=== PATIENT | female | born 1980 | race African-American/Black ===

== ENCOUNTER 2017-08-10 08:49 | Emergency (ER) | payer MEDICAID, OTHER ==
[~2017-08-10] VITALS: Ht 177.8 cm; Wt 115.0 kg
[~2017-08-10 08:49] MED LIST: ASPIRIN; BENADRYL; GEODON; LAMICTAL; LITHIUM; SEROQUEL; TRAZADONE; VICODIN
[2017-08-10 09:32] VITALS: BP 145/70
[2017-08-10] MEDS ORDERED: SODIUM CHLORIDE 0.9% 1,000 ML IV ONE (09:45)
[2017-08-10] MEDS ORDERED: FAMOTIDINE 20MG/2ML VIAL IV ONE (09:45)
[2017-08-10] MEDS ORDERED: ONDANSETRON HCL 4MG/2ML VIAL IV ONE (09:45)
[2017-08-10 09:54] LABS: HEMATOCRIT. 38.4 % (36.0-48.0); HEMOGLOBIN. 12.7 g/dL (12.0-16.0); MEAN CORPUSCULAR HEMOGLOBIN 29.1 pg (28.0-32.0); MEAN CORPUSCULAR VOLUME 87.5 fL (81.0-99.0); MEAN PLATELET VOLUME 7.3 fl (7.4-10.4); PLATELET 233 x1000/uL (130-400); RED BLOOD CELL COUNT 4.39 mill/uL (4.2-5.4); RED CELL DISTRIBUTION WIDTH 15.4 % (11.6-14.6)
[2017-08-10 10:05] LABS: CARBON DIOXIDE 30 mEq/L (21-32); CHLORIDE 105 mEq/L (98-107)
[2017-08-10 10:14] LABS: ATYPICAL LYMPHOCYTES 1
[2017-08-10 10:16] LABS: PLATELET ESTIMATE NORMAL
[2017-08-10 11:08] LABS: CLARITY URINE CLOUDY (CLEAR); COLOR URINE YELLOW (YELLOW); GLUCOSE URINE NEGATIVE (NEGATIVE); KETONES URINE 1+ (NEGATIVE); LEUKOCYTE ESTERASE URINE NEGATIVE (NEGATIVE); NITRITE URINE NEGATIVE (NEGATIVE); OCCULT BLOOD URINE NEGATIVE (NEGATIVE); PROTEIN URINE NEGATIVE (NEGATIVE); SPECIFIC GRAVITY URINE 1.029 (1.005-1.030)
== END 2017-08-10 11:05 | disposition home or self-care (01) ==
LOC: ER 09:10
DX: R10.13 Epigastric pain (principal); F41.9 Anxiety disorder, unspecified; F31.9 Bipolar disorder, unspecified; F17.210 Nicotine dependence, cigarettes, uncomplicated; F12.10 Cannabis abuse, uncomplicated; Z79.82 Long term (current) use of aspirin; Z86.711 Personal history of pulmonary embolism; Z86.718 Personal history of other venous thrombosis and embolism
CPT/HCPCS: 36415; 80053; 81001; 81025; 83690; 85025; 96361; 96374; 96375; 99284; J2405; J3490; J7030; Z7610

== ENCOUNTER 2017-08-15 01:35 | Emergency (ER) | payer MEDICAID ==
[~2017-08-15] VITALS: Ht 172.7 cm; Wt 109.0 kg
[2017-08-15] MEDS ORDERED: ACETAMINOPHEN WITH CODEINE 300/30MG TABLET PO STA (02:11)
[2017-08-15 02:39] LABS: CHLORIDE 107 mEq/L (98-107)
[2017-08-15 02:48] LABS: CARBON DIOXIDE 30 mEq/L (21-32)
[2017-08-15 03:11] LABS: CLARITY URINE CLOUDY (CLEAR); COLOR URINE YELLOW (YELLOW); GLUCOSE URINE NEGATIVE (NEGATIVE); KETONES URINE TRACE (NEGATIVE); LEUKOCYTE ESTERASE URINE 2+ (NEGATIVE); NITRITE URINE NEGATIVE (NEGATIVE); OCCULT BLOOD URINE NEGATIVE (NEGATIVE); PH URINE 7.5 (4.5-8.0); PROTEIN URINE NEGATIVE (NEGATIVE); SPECIFIC GRAVITY URINE 1.027 (1.005-1.030)
[2017-08-15 03:17] LABS: BASOPHILS % 0.3 % (0.0-2.0); EOSINOPHILS % 1.1 % (0.0-5.0); HEMATOCRIT. 37.8 % (36.0-48.0); HEMOGLOBIN. 12.6 g/dL (12.0-16.0); LYMPHOCYTES % 30.9 % (20.0-50.0); MEAN CORPUSCULAR HEMOGLOBIN 29.1 pg (28.0-32.0); MEAN CORPUSCULAR VOLUME 87.2 fL (81.0-99.0); MEAN PLATELET VOLUME 8.1 fl (7.4-10.4); MONOCYTES % 9.4 % (2.0-8.0); NEUTROPHILS % 58.3 % (40.0-76.0); PLATELET 222 x1000/uL (130-400); RED BLOOD CELL COUNT 4.33 mill/uL (4.2-5.4); RED CELL DISTRIBUTION WIDTH 15.2 % (11.6-14.6)
[2017-08-15] MEDS ORDERED: CEPHALEXIN 500MG CAPSULE PO ONE (04:15)
[2017-08-15 05:53] VITALS: BP 119/65
== END 2017-08-15 05:54 | disposition home or self-care (01) ==
LOC: ER 01:45
DX: N30.00 Acute cystitis without hematuria (principal); F31.9 Bipolar disorder, unspecified; Z86.718 Personal history of other venous thrombosis and embolism; Z86.711 Personal history of pulmonary embolism; Z79.01 Long term (current) use of anticoagulants; Z88.8 Allergy status to other drugs, medicaments and biological substances
CPT/HCPCS: 36415; 74176; 80053; 81001; 81025; 85025; 85610; 87086; 99285

== ENCOUNTER 2019-11-13 13:19 | Emergency (ER) | payer MEDICAID ==
[~2019-11-13] VITALS: Ht 172.7 cm; Wt 102.0 kg
[2019-11-13] MEDS ORDERED: SODIUM CHLORIDE 0.9% 1,000 ML IV ONE (13:51)
[2019-11-13 14:23] LABS: BASOPHILS % 0.7 % (0.0-2.0); EOSINOPHILS % 0.9 % (0.0-5.0); HEMATOCRIT. 39.4 % (36.0-48.0); HEMOGLOBIN. 13.1 g/dL (12.0-16.0); LYMPHOCYTES % 24.1 % (20.0-50.0); MEAN CORPUSCULAR HEMOGLOBIN 30.2 pg (28.0-32.0); MEAN CORPUSCULAR VOLUME 90.9 fL (81.0-99.0); MEAN PLATELET VOLUME 8.8 fl (7.4-10.4); MONOCYTES % 6.9 % (2.0-8.0); NEUTROPHILS % 67.4 % (40.0-76.0); PLATELET 181 x1000/uL (130-400); RED BLOOD CELL COUNT 4.34 mill/uL (4.2-5.4); RED CELL DISTRIBUTION WIDTH 15.8 % (11.6-14.6)
[2019-11-13 14:31] LABS: CHLORIDE 107 mEq/L (98-107)
[2019-11-13 14:34] LABS: HCG SCREEN NEGATIVE
[2019-11-13 14:35] LABS: D-DIMER 0.19 mg/L FEU (<0.50); PARTIAL THROMBOPLASTIN TIME 26.8 sec (23.4-31.0)
[2019-11-13 14:36] LABS: ETHANOL BLOOD < 10 mg/dL
[2019-11-13 15:34] LABS: CLARITY URINE CLOUDY (CLEAR); COLOR URINE YELLOW (YELLOW); KETONES URINE TRACE (NEGATIVE); LEUKOCYTE ESTERASE URINE 1+ (NEGATIVE); NITRITE URINE NEGATIVE (NEGATIVE); OCCULT BLOOD URINE NEGATIVE (NEGATIVE); PH URINE 6.5 (4.5-8.0); PROTEIN URINE NEGATIVE (NEGATIVE); SPECIFIC GRAVITY URINE 1.032 (1.005-1.030); UROBILINOGEN URINE 0.2 E.U./dL (0.2-1.0)
[2019-11-13 15:52] LABS: *COCAINE SCREEN URINE NEGATIVE (NEGATIVE); METHADONE URINE SCREEN NEGATIVE (NEGATIVE); OPIATES URINE SCREEN NEGATIVE (NEGATIVE)
[2019-11-13 15:54] LABS: *AMPHETAMINES SCREEN URINE NEGATIVE (NEGATIVE); *BARBITURATES SCREEN URINE NEGATIVE (NEGATIVE); *BENZODIAZEPINES SCREEN URINE NEGATIVE (NEGATIVE); CANNABINOID URINE SCREEN NEGATIVE (NEGATIVE); PHENCYCLIDINE URINE SCREEN NEGATIVE (NEGATIVE)
[2019-11-13 17:29] VITALS: BP 106/54
[2019-11-13] MEDS ORDERED: IOHEXOL-350 100 ML BOTTLE ONE (22:46)
== END 2019-11-13 17:32 | disposition home or self-care (01) ==
LOC: ER 13:31
DX: R55 Syncope and collapse (principal); E86.0 Dehydration; R07.89 Other chest pain; F31.9 Bipolar disorder, unspecified; Z79.82 Long term (current) use of aspirin; Z86.711 Personal history of pulmonary embolism; Z86.718 Personal history of other venous thrombosis and embolism; Z98.890 Other specified postprocedural states; Z79.01 Long term (current) use of anticoagulants; Z88.8 Allergy status to other drugs, medicaments and biological substances
CPT/HCPCS: 36415; 70450; 71045; 71275; 80053; 80305; 80320; 81003; 83690; 83880; 84484; 84703; 85025; 85379; 85610; 85730; 86850; 86900; 86901; 93005; 96360; 99284; J7030; Q9967; Z7610; G0480

== ENCOUNTER 2020-09-20 12:55 | Emergency (ER) | payer MEDICAID ==
[~2020-09-20] VITALS: Ht 170.2 cm; Wt 106.0 kg
[2020-09-20] MEDS ORDERED: ACETAMINOPHEN WITH CODEINE 300/30MG TABLET PO ONE (13:15)
[2020-09-20 14:05] VITALS: BP 127/70
== END 2020-09-20 14:54 | disposition home or self-care (01) ==
LOC: ER 12:55
DX: S80.12XA Contusion of left lower leg, initial encounter (principal); W01.0XXA Fall on same level from slipping, tripping and stumbling without subsequent striking against object, initial encounter; Y93.89 Activity, other specified; Y92.89 Other specified places as the place of occurrence of the external cause; Y99.8 Other external cause status; F31.9 Bipolar disorder, unspecified; Z98.890 Other specified postprocedural states; Z79.899 Other long term (current) drug therapy; Z88.8 Allergy status to other drugs, medicaments and biological substances
CPT/HCPCS: 73590; 73610; 73630; 99284

== ENCOUNTER 2021-04-02 12:21 | Emergency (ER) | payer MEDICAID ==
[~2021-04-02] VITALS: Ht 172.7 cm; Wt 91.0 kg
[2021-04-02] MEDS ORDERED: LORAZEPAM 0.5MG TABLET PO ONE (12:45)
[2021-04-02 13:18] LABS: BASOPHILS % 0.3 % (0.0-2.0); EOSINOPHILS % 0.3 % (0.0-5.0); HEMATOCRIT. 34.2 % (36.0-48.0); HEMOGLOBIN. 11.8 g/dL (12.0-16.0); LYMPHOCYTES % 35.6 % (20.0-50.0); MEAN CORPUSCULAR HEMOGLOBIN 31.6 pg (28.0-32.0); MEAN CORPUSCULAR VOLUME 91.7 fL (81.0-99.0); MEAN PLATELET VOLUME 6.6 fl (7.4-10.4); MONOCYTES % 5.7 % (2.0-8.0); NEUTROPHILS % 58.1 % (40.0-76.0); PLATELET 320 x1000/uL (130-400); RED BLOOD CELL COUNT 3.73 mill/uL (4.2-5.4); RED CELL DISTRIBUTION WIDTH 14.3 % (11.6-14.6)
[2021-04-02 13:19] LABS: CLARITY URINE CLOUDY (CLEAR); COLOR URINE YELLOW (YELLOW); KETONES URINE NEGATIVE (NEGATIVE); LEUKOCYTE ESTERASE URINE NEGATIVE (NEGATIVE); NITRITE URINE NEGATIVE (NEGATIVE); OCCULT BLOOD URINE NEGATIVE (NEGATIVE); PROTEIN URINE NEGATIVE (NEGATIVE); SPECIFIC GRAVITY URINE 1.029 (1.005-1.030); UROBILINOGEN URINE 0.2 E.U./dL (0.2-1.0)
[2021-04-02 13:39] LABS: CHLORIDE 108 mEq/L (98-107)
[2021-04-02 13:45] LABS: ETHANOL BLOOD < 10 mg/dL
[2021-04-02 13:49] LABS: CANNABINOID URINE SCREEN NEGATIVE (NEGATIVE)
[2021-04-02 13:50] LABS: *BARBITURATES SCREEN URINE NEGATIVE (NEGATIVE); *COCAINE SCREEN URINE NEGATIVE (NEGATIVE); METHADONE URINE SCREEN NEGATIVE (NEGATIVE); OPIATES URINE SCREEN NEGATIVE (NEGATIVE)
[2021-04-02 13:52] LABS: *AMPHETAMINES SCREEN URINE PRESUMTIVE POSITIVE (NEGATIVE); *BENZODIAZEPINES SCREEN URINE NEGATIVE (NEGATIVE); PHENCYCLIDINE URINE SCREEN PRESUMTIVE POSITIVE (NEGATIVE)
[2021-04-02 14:43] VITALS: BP 112/67
== END 2021-04-02 14:58 | disposition home or self-care (01) ==
LOC: ER 12:21
DX: T43.621A Poisoning by amphetamines, accidental (unintentional), initial encounter (principal); R07.89 Other chest pain; F41.9 Anxiety disorder, unspecified; F32.9 Major depressive disorder, single episode, unspecified; Z86.718 Personal history of other venous thrombosis and embolism; Z79.01 Long term (current) use of anticoagulants; Z86.711 Personal history of pulmonary embolism; Z98.890 Other specified postprocedural states; Z79.82 Long term (current) use of aspirin; Z88.8 Allergy status to other drugs, medicaments and biological substances; Y92.488 Other paved roadways as the place of occurrence of the external cause
CPT/HCPCS: 36415; 71045; 80053; 80305; 80307; 80320; 80329; 81003; 81025; 85025; 93005; 99285; G0480

== ENCOUNTER 2025-09-09 14:59 | Emergency (ER) | payer MEDICAID ==
[~2025-09-09] VITALS: Ht 170.2 cm; Wt 130.0 kg
[2025-09-09 15:01] VITALS: O2SAT 99
[2025-09-09 15:26] VITALS: BP 136/90; PULSE 87; RESP 18; TEMP 36.6; O2SAT 100
[2025-09-09 15:46] LABS: BASOPHILS % 0.4 % (0.0-2.0); EOSINOPHILS % 2.8 % (0.0-5.0); HEMATOCRIT. 33.2 % (36.0-48.0); HEMOGLOBIN. 10.8 g/dL (12.0-16.0); LYMPHOCYTES % 27.7 % (20.0-50.0); MEAN PLATELET VOLUME 7.7 fl (7.4-10.4); MONOCYTES % 7.1 % (2.0-8.0); NEUTROPHILS % 62.0 % (40.0-76.0); PLATELET 237 x1000/uL (130-400); RED BLOOD CELL COUNT 3.75 mill/uL (4.2-5.4); RED CELL DISTRIBUTION WIDTH 16.0 % (11.6-14.6)
[2025-09-09 15:56] LABS: CREATININE 0.8 mg/dL (0.6-1.0); UREA NITROGEN BLOOD 17 mg/dL (9-23)
[2025-09-09 16:15] LABS: HCG SCREEN NEGATIVE
== END 2025-09-09 20:21 | disposition home or self-care (01) ==
LOC: ER 14:59
DX: R53.1 Weakness (principal); F20.9 Schizophrenia, unspecified; F31.9 Bipolar disorder, unspecified; Z86.718 Personal history of other venous thrombosis and embolism
CPT/HCPCS: 36415; 80048; 84703; 85025; 99283